=== PATIENT | female | born 1965 | race Caucasian/White ===

== ENCOUNTER → 2020-11-06 | Outpatient (CLI) | payer OTHER ==
[~2020-11-06] MED LIST: ALDACTONE 25MG25 MG PO; AMIODARONE HCL200 MG PO; AMLODIPINE BESYL5 MG PO; AUGMENTIN 875-1 EACH PO; ELIQUIS 5 MG TAB5 MG PO; LOPRESSOR 25 MG25 MG PO; PENVEE K 500 M500 MG PO; POTASSIUM CHLO10 ME1 PO; XIFAXAN 550 MG550 MG PO; [UNRECOGNIZED DRUG - OTHER] PO
[2020-11-06 12:47] LABS: HEMOGLOBIN 13.7 gm/dl (12.3-15.3); RED BLOOD COUNT 4.04 M/UL (4.00-5.10); WHITE BLOOD COUNT 7.8 K/UL (4.5-11.0)
[2020-11-06 13:13] LABS: BUN/CREATININE RATIO 13 (0-10)
== END ==
LOC: LAB 11:55
PROVIDERS: Internal Medicine Interventional Cardiology
DX: I48.91 Unspecified atrial fibrillation (principal); I10 Essential (primary) hypertension; R06.02 Shortness of breath
CPT/HCPCS: 80048; 85025; 85610; 85730; 93005

== ENCOUNTER → 2020-11-10 | Day surgery (SDC) | payer OTHER | END | disposition home or self-care (01) | LOC: CATH 07:11 | DX: I25.118 Atherosclerotic heart disease of native coronary artery with other forms of angina pectoris (principal); I11.0 Hypertensive heart disease with heart failure; I50.9 Heart failure, unspecified; I48.0 Paroxysmal atrial fibrillation; I27.20 Pulmonary hypertension, unspecified; K21.9 Gastro-esophageal reflux disease without esophagitis; F17.210 Nicotine dependence, cigarettes, uncomplicated; Z83.3 Family history of diabetes mellitus; Z20.822 Contact with and (suspected) exposure to COVID-19 | CPT/HCPCS: 82803; 93005; 93312; 93320; 93571; 99152; 99153; C1751; C1769; C1887; J0153; J1644; J2250; J2405; J3010; J7030; J7040; Q9965; Q9967; U0002 ==